=== PATIENT | male | born 1950 | race Two or more races ===

== ENCOUNTER 2016-10-02 00:28 | Inpatient (IN) | payer BC, OTHER ==
--- NOTE | 2016-10-02 01:07 | ER Document Report ---
ED General - General Chief Complaint: Chest Pain Stated Complaint: CHEST PAIN Time seen by provider: 01:05 Notes: Patient is a 65-year-old male that comes emergency department for 2 complaints, chest pain and bloody bowel movements. 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 He denies shortness of breath. Patient also states that tonight he has had repeated episodes (4 in total) where he feels a sudden gurgling in his lower abdomen and then rushes to the bathroom and has almost pure blood bowel movements. Patient is on Plavix and aspirin, took both today, took 324 mg of aspirin. He is also on omeprazole, denies black stools, denies upper abdominal pain or vomiting. Patient has a history of HTN, HLD, CAD with stents 2, most recent in [place] in 2006. Patient sees Dr. Hernández [facility] and [facility]. TRAVEL OUTSIDE OF THE [place] IN LAST 30 DAYS: No - Related Data Allergies/Adverse Reactions: No Known Allergies Allergy (Unverified 10/02/16 00:31) Home Medications: Current Home Medications Amlodipine Besylate [Amlodipine Besylate] 5 mg PO DAILY 10/02/16 [History] Aspirin [Aspirin EC] 325 mg PO DAILY 10/02/16 [History] Clopidogrel Bisulfate [Clopidogrel] 75 mg PO DAILY 10/02/16 [History] Lisinopril [Lisinopril] 40 mg PO BID 10/02/16 [History] Metoprolol Tartrate [Metoprolol Tartrate] 50 mg PO BID 10/02/16 [History] [place]-3S/Dha/Epa/Fish Oil [Fish Oil 1,200 mg Softgel] 1 each PO BID 10/02/16 [ History] Omeprazole [Omeprazole] 20 mg PO DAILY 10/02/16 [History] Pravastatin Sodium [Pravastatin Sodium] 40 mg PO DAILY 10/02/16 [History] Past Medical History - General Information source: Patient - Social History Smoking Status: Current Every Day Smoker Frequency of alcohol use: Social Drug Abuse: None Lives with: Family Family History: Reviewed & Not Pertinent Patient has suicidal ideation: No Patient has homicidal ideation: No - Past Medical History Cardiac Medical History: Reports: Hx Coronary Artery Disease, Hx Hypercholesterolemia, Hx Hypertension Renal/ Medical History: Denies: Hx Peritoneal Dialysis Past Surgical History: Reports: Hx Cardiac Catheterization - Immunizations Immunizations up to date: Yes Hx Diphtheria, Pertussis, Tetanus Vaccination: Yes Review of Systems - Review of Systems Constitutional: No symptoms reported EENT: No symptoms reported Cardiovascular: See HPI Respiratory: No symptoms reported Gastrointestinal: See HPI Genitourinary: No symptoms reported Male Genitourinary: No symptoms reported Musculoskeletal: No symptoms reported Skin: No symptoms reported Hematologic/Lymphatic: No symptoms reported Neurological/Psychological: No symptoms reported Physical Exam - Vital signs Vitals: Temp Pulse Resp BP Pulse Ox 98.3 F 68 18 171/92 H 96 10/02/16 00:35 10/02/16 00:35 10/02/16 00:35 10/02/16 00:35 10/02/16 00:35 Interpretation: Normal - General General appearance: Anxious In distress: None - Patient slightly nervous and slightly pale, otherwise unremarkable - HEENT Head: Normocephalic, Atraumatic Eyes: Normal Pupils: PERRL - Respiratory Respiratory status: No respiratory distress Chest status: Tender - There is specific point tenderness over the left lateral rib at its approximately ribs 4 and 5 near the midaxillary line Breath sounds: Normal Chest palpation: Normal - Cardiovascular Rhythm: Regular. No: Tachycardia Heart sounds: Normal auscultation, S1 appreciated, S2 appreciated Murmur: No - Abdominal Inspection: Normal Distension: No distension Bowel sounds: Normal Tenderness: Nontender. No: Tender, Rebound Organomegaly: No organomegaly - Rectal Stool: See lab result, Other - no grossly bloody stools Hemorrhoids: None. No: Internal, External Prostate: Enlarged - slightly enlarged, non-tender, not boggy - Back Back: Normal, Nontender - Extremities General upper extremity: Normal inspection, Nontender, Normal color, Normal ROM , Normal temperature General lower extremity: Normal inspection, Nontender, Normal color, Normal ROM , Normal temperature, Normal weight bearing. 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 No gross bloody stools noted on examination. Patient has already taken 324 mg of aspirin and he is on Plavix, aspirin withheld at his arrival for this reason. In regards to chest pain, patient has specific, mild, constant, easily reproducible rib tenderness on the left side near the midaxillary line, no other chest pain or symptoms reported in regards to this. EKG shows sinus rhythm, inverted T waves inferiorly, PVCs. Chest x-ray is unremarkable grossly, radiology read pending. Initial cardiac enzyme is negative. Will trend. Rectal examination is unremarkable, no gross bleeding, no internal or external hemorrhoids, hemoglobin 13.3, coagulation markers unremarkable. Laboratory initially resulted with negative stool, patient obviously has bleeding in his bowel movements, another sample was sent and is positive. 10/02/16 02:20 Spoke with surgery operational trainer, Dr. Long, recommends consultation with hospitalist for potential admission of lower GI bleed. Spoke with hospitalist, hospice recommends transfer because of lack of GI coverage. Discussed with patient, patient requests to be transferred to [facility]. 10/02/16 20:35 Spoke with [facility], they state they are "running a code" and will call back. 10/02/16 20:35 Spoke with [facility] again, they state that they will not be able to take the patient because they do not have any beds, they are willing to wait list. 10/02/16 Spoke with Ashish (Dwayne), and they state that they are full and do not have availability for the patient, patient would have to be wait listed Spoke with [facility], pending call back from hospitalist Spoke with Dr. Rooney, patient will be accepted to [facility]. He recommends that because patient takes aspirin that patient also get Protonix bolus. 10/02/16 03:35 Spoke with transfer center, they will not have a bed until the afternoon of today. Patient was complaining of dizziness, is still not hypotensive or tachycardic but is more pale. Briefly placed in Trendelenburg until patient felt better. After this patient denied any symptoms. Patient has now had 8 bloody bowel movements since his arrival, I have ordered blood, patient given a bolus of IV fluids, patient was evaluated at bedside by Dr. Cochran. Spoke again with Dr. Singh and with Dr. Long, patient will be admitted to the hospital, patient admitted to the ICU. 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 Shaw. - Vital Signs Vital signs: Temp Pulse Resp BP Pulse Ox 98.1 F 54 L 15 97/70 L 95 10/02/16 04:51 10/02/16 04:51 10/02/16 04:51 10/02/16 04:51 10/02/16 04:51 - Laboratory Result Diagrams: 10/02/16 03:16 10/02/16 01:00 Laboratory results interpreted by me: 10/02/16 10/02/16 10/02/16 01:00 01:00 03:16 RBC 4.34 L 4.15 L Hgb 13.3 L 12.6 L Hct 37.3 L Crossmatch See Detail Critical Care Note - Critical Care Note Total time excluding time spent on procedures (mins): 40 - lower GI bleed Comments: Please allow 40 minutes of critical care time for evaluation and treatment of lower GI bleed with IV fluids, blood transfusion, multiple re-evaluations, consultation with surgeon, internal medicine, and tertiary care centers. Discharge - Discharge Clinical Impression: Lower GI bleed Condition: Serious Disposition: ADMITTED INPATIENT Admitting Provider: Hospitalist - Dr. Singh Unit Admitted: ICU
[2016-10-02 01:26] LABS: ABSOLUTE EOSINOPHILS # (AUTO) 0.1 10^3/uL (0.0-0.6); ABSOLUTE LYMPHOCYTES (AUTO) 1.6 10^3/uL (0.5-4.7); ABSOLUTE MONOCYTES (AUTO) 0.6 10^3/uL (0.1-1.4); ABSOLUTE NEUT (AUTO) 5.4 10^3/uL (1.7-8.2); BASOPHILS % (AUTO) 0.4 % (0-2); EOSINOPHILS % (AUTO) 0.9 % (0-6); HEMATOCRIT 39.4 % (37.9-51.0); HEMOGLOBIN 13.3 g/dL (13.5-17.0); HGB HCT DIFFERENCE 0.5; LYMPHOCYTES % (AUTO) 21.1 % (13-45); MEAN CORPUSCULAR HEMOGLOBIN 30.6 pg (27.0-33.4); MEAN CORPUSCULAR HGB CONC 33.7 g/dL (32.0-36.0); MEAN CORPUSCULAR VOLUME 91 fl (80-97); MONOCYTES % (AUTO) 8.3 % (3-13); RED BLOOD COUNT 4.34 10^6/uL (4.35-5.55); SEGMENTED NEUTROPHILS % (AUTO) 69.3 % (42-78); WHITE BLOOD COUNT 7.8 10^3/uL (4.0-10.5)
[2016-10-02 01:36] LABS: PARTIAL THROMBOPLASTIN TIME 29.2 SEC (23.5-35.8); PROTHROMBIN TIME 12.8 SEC (11.4-15.4)
[2016-10-02 01:55] LABS: ALANINE AMINOTRANSFERASE 22 U/L (21-72); ALBUMIN 3.6 g/dL (3.5-5.0); ALKALINE PHOSPHATASE 59 U/L (38-126); ANION GAP 12 (5-19); ASPARTATE AMINO TRANSFERASE 19 U/L (17-59); BILIRUBIN,TOTAL 0.5 mg/dL (0.2-1.3); BLOOD UREA NITROGEN 20 mg/dL (7-20); CALCIUM 9.1 mg/dL (8.4-10.2); CARBON DIOXIDE 27 mmol/L (22-30); CHLORIDE 106 mmol/L (98-107); CREATINE KINASE 77 U/L (55-170); CREATININE RESULT 0.98 mg/dL (0.52-1.25); GLUCOSE 100 mg/dL (75-110); POTASSIUM 3.7 mmol/L (3.6-5.0); SODIUM 144.7 mmol/L (137-145); TOTAL PROTEIN 6.5 g/dL (6.3-8.2)
[2016-10-02 02:05] LABS: CREATINE KINASE MB 1.44 ng/mL (<4.55)
[2016-10-02 02:10] LABS: TROPONIN I < 0.012 ng/mL
[2016-10-02] MEDS ORDERED: NORMAL SALINE 250 ML IV PRN ×3 (03:13→18:37)
[2016-10-02 03:24] LABS: HEMATOCRIT 37.3 % (37.9-51.0); HEMOGLOBIN 12.6 g/dL (13.5-17.0); HGB HCT DIFFERENCE 0.5; MEAN CORPUSCULAR HEMOGLOBIN 30.4 pg (27.0-33.4); MEAN CORPUSCULAR HGB CONC 33.8 g/dL (32.0-36.0); MEAN CORPUSCULAR VOLUME 90 fl (80-97); RED BLOOD COUNT 4.15 10^6/uL (4.35-5.55); RED CELL DISTRIBUTION WIDTH 13.6 % (11.5-14.0); WHITE BLOOD COUNT 8.5 10^3/uL (4.0-10.5)
[2016-10-02] MEDS ORDERED: PANTOPRAZOLE SODIUM 40 MG VIAL IV ONE (03:33)
[2016-10-02] MEDS ORDERED: ONDANSETRON HCL INJ/PF 4 MG/2 ML SDV IV PRN (03:55)
[2016-10-02] MEDS ORDERED: IPRATROPIUM/ALBUTEROL 0.5-2.5 MG/3 ML AMPUL NEB PRN (03:55)
[2016-10-02] MEDS ORDERED: NORMAL SALINE 1000 ML 1,000 ML IV SCH (04:00)
--- NOTE | 2016-10-02 04:56 | PDOC H&P ---
History of Present Illness Patient complains of: Bright red blood per rectum History of Present Illness: JANNA MORRISON is a 65 year old male with a past medical history of coronary artery disease status post stent placement 2 in 2006, hypertension and tobacco dependence. Who had been in his usual state of health until approximately 1 hour prior to presentation having lower abdominal cramping followed by passage of hard stool with approximately 200ml of bright red blood. This occurred at least 4 times and brought to the emergency room for evaluation again occurring 3 times mixed with stool. Patient denies previous colonoscopy, any recent change in medications or prior event. He takes Plavix and full dose aspirin every morning. Past Medical History Cardiac Medical History: Reports: Coronary Artery Disease, Hypertension Pulmonary Medical History: Reports: Bronchitis, Chronic Obstructive Pulmonary Disease (COPD) EENT Medical History: Reports: None Neurological Medical History: Reports: None Endocrine Medical History: Reports: None Renal/ Medical History: Reports: None Malignancy Medical History: Reports: None GI Medical History: Reports: None Musculoskeltal Medical History: Reports: Arthritis Skin Medical History: Reports: None Hematology: Reports: None Infectious Medical History: Reports: None Social History Information Source: Patient, Relative Lives with: Family Smoking Status: Current Every Day Smoker Cigarettes Packs Per Day: 1 Frequency of Alcohol Use: Social Hx Recreational Drug Use: No Drugs: None - Advance Directive Resuscitation Status: Full Code Family History Family History: Malignancy - Mother with throat cancer Parental Family History Reviewed: Yes Children Family History Reviewed: Yes Sibling(s) Family History Reviewed.: Yes Medication/Allergy Allergies/Adverse Reactions: No Known Allergies Allergy (Unverified 10/02/16 00:31) Review of Systems Constitutional: ABSENT: chills, fever(s), headache(s), weight gain, weight loss Eyes: ABSENT: visual disturbances Ears: ABSENT: hearing changes Cardiovascular: ABSENT: chest pain, dyspnea on exertion, edema, orthropnea, palpitations Respiratory: ABSENT: cough, hemoptysis Gastrointestinal: ABSENT: abdominal pain, constipation, diarrhea, hematemesis, hematochezia, nausea, vomiting Genitourinary: ABSENT: dysuria, hematuria Musculoskeletal: ABSENT: joint swelling Integumentary: ABSENT: rash, wounds Neurological: ABSENT: abnormal gait, abnormal speech, confusion, dizziness, focal weakness, syncope Psychiatric: ABSENT: anxiety, depression, homidical ideation, suicidal ideation Endocrine: ABSENT: cold intolerance, heat intolerance, polydipsia, polyuria Hematologic/Lymphatic: ABSENT: easy bleeding, easy bruising Physical Exam Vital Signs: Temp Pulse Resp BP Pulse Ox 98.3 F 68 19 145/98 H 98 10/02/16 00:35 10/02/16 00:35 10/02/16 03:15 10/02/16 03:15 10/02/16 03:15 Intake & Output 09/30/16 10/01/16 10/02/16 11:59 11:59 11:59 Weight 98.9 kg General appearance: PRESENT: cooperative, mild distress Head exam: PRESENT: atraumatic, normocephalic Eye exam: PRESENT: conjunctiva pink, EOMI, PERRLA. ABSENT: scleral icterus Ear exam: PRESENT: normal external ear exam Mouth exam: PRESENT: moist, tongue midline Neck exam: ABSENT: carotid bruit, JVD, lymphadenopathy, thyromegaly Respiratory exam: PRESENT: clear to auscultation tamir. ABSENT: rales, rhonchi, wheezes Cardiovascular exam: PRESENT: RRR. ABSENT: diastolic murmur, rubs, systolic murmur Pulses: PRESENT: normal dorsalis pedis pul Vascular exam: PRESENT: normal capillary refill GI/Abdominal exam: PRESENT: hyperactive bowel sounds, soft. ABSENT: distended, firm, guarding, mass, rebound, rigid, tenderness Rectal exam: PRESENT: bloody stool, normal rectal tone. ABSENT: fecal impaction Extremities exam: PRESENT: full ROM. ABSENT: calf tenderness, clubbing, pedal edema Neurological exam: PRESENT: alert, awake, oriented to person, oriented to place , oriented to time, oriented to situation, CN II-XII grossly intact. ABSENT: motor sensory deficit Psychiatric exam: PRESENT: anxious, appropriate affect, normal mood. ABSENT: homicidal ideation, suicidal ideation Skin exam: PRESENT: dry, intact, warm. ABSENT: cyanosis, rash Results Laboratory Results: 10/02/16 03:16 10/02/16 01:00 10/02/16 10/02/16 10/02/16 01:00 01:00 01:00 WBC 7.8 RBC 4.34 L Hgb 13.3 L Hct 39.4 MCV 91 MCH 30.6 MCHC 33.7 RDW 14.0 Plt Count 271 Seg Neutrophils % 69.3 Lymphocytes % 21.1 Monocytes % 8.3 Eosinophils % 0.9 Basophils % 0.4 Absolute Neutrophils 5.4 Absolute Lymphocytes 1.6 Absolute Monocytes 0.6 Absolute Eosinophils 0.1 Absolute Basophils 0.0 Sodium 144.7 Potassium 3.7 Chloride 106 Carbon Dioxide 27 Anion Gap 12 BUN 20 Creatinine 0.98 Est GFR ( Amer) > 60 Est GFR (Non-Af Amer) > 60 Glucose 100 Calcium 9.1 Total Bilirubin 0.5 AST 19 ALT 22 Alkaline Phosphatase 59 Total Protein 6.5 Albumin 3.6 Stool Occult Blood NEGATIVE Blood Type Antibody Screen 10/02/16 10/02/16 10/02/16 01:00 01:45 03:16 WBC 8.5 RBC 4.15 L Hgb 12.6 L Hct 37.3 L MCV 90 MCH 30.4 MCHC 33.8 RDW 13.6 Plt Count 270 Seg Neutrophils % Lymphocytes % Monocytes % Eosinophils % Basophils % Absolute Neutrophils Absolute Lymphocytes Absolute Monocytes Absolute Eosinophils Absolute Basophils Sodium Potassium Chloride Carbon Dioxide Anion Gap BUN Creatinine Est GFR ( Amer) Est GFR (Non-Af Amer) Glucose Calcium Total Bilirubin AST ALT Alkaline Phosphatase Total Protein Albumin Stool Occult Blood POSITIVE Blood Type O POSITIVE Antibody Screen NEGATIVE 10/02/16 10/02/16 01:00 01:00 Creatine Kinase 77 CK-MB (CK-2) 1.44 Troponin I < 0.012 Assessment & Plan - Diagnosis (1) Lower GI bleed Is this a current diagnosis for this admission?: YesPlan: Likely AVM versus bleeding diverticulum he is Typed and screen 2 units of pack red blood cells ordered repeat CBC every 6 hours, surgery consulted (2) Coronary artery disease Is this a current diagnosis for this admission?: YesPlan: Aspirin and Plavix held given active large lower GI bleed, obtain serial cardiac enzymes. (3) Anemia Is this a current diagnosis for this admission?: YesPlan: Secondary to large active lower GI bleed transfuse when necessary maintain hemoglobin greater than 10 given coronary disease - Time Time Spent: 50 to 70 Minutes
[2016-10-02 06:28] LABS: CREATINE KINASE MB 1.05 ng/mL (<4.55); TROPONIN I 0.012 ng/mL
--- NOTE | 2016-10-02 09:22 | EKG REPORT ---
SEVERITY:- ABNORMAL ECG - SINUS RHYTHM VENTRICULAR PREMATURE COMPLEX PROBABLE LEFT ATRIAL ABNORMALITY NONSPECIFIC INTRAVENTRICULAR CONDUCTION DELAY LEFT VENTRICULAR HYPERTROPHY : Confirmed by: Ron Mascorro 02-Oct-2016 09:21:02
[2016-10-02 09:24] LABS: ABSOLUTE MONOCYTES (AUTO) 0.4 10^3/uL (0.1-1.4); BASOPHILS % (AUTO) 0.4 % (0-2); EOSINOPHILS % (AUTO) 0.2 % (0-6); HEMATOCRIT 33.6 % (37.9-51.0); HEMOGLOBIN 11.3 g/dL (13.5-17.0); HGB HCT DIFFERENCE 0.3; LYMPHOCYTES % (AUTO) 12.2 % (13-45); MEAN CORPUSCULAR HEMOGLOBIN 30.5 pg (27.0-33.4); MEAN CORPUSCULAR HGB CONC 33.7 g/dL (32.0-36.0); MEAN CORPUSCULAR VOLUME 91 fl (80-97); MONOCYTES % (AUTO) 4.3 % (3-13); RED BLOOD COUNT 3.71 10^6/uL (4.35-5.55); RED CELL DISTRIBUTION WIDTH 13.8 % (11.5-14.0); SEGMENTED NEUTROPHILS % (AUTO) 82.9 % (42-78); WHITE BLOOD COUNT 8.4 10^3/uL (4.0-10.5)
[2016-10-02] MEDS ORDERED: METOPROLOL TARTRATE 50 MG TABLET PO SCH (10:00)
[2016-10-02] MEDS ORDERED: AMLODIPINE BESYLATE 5 MG TABLET PO SCH (10:00)
[2016-10-02 12:09] LABS: CREATINE KINASE MB 0.82 ng/mL (<4.55)
[2016-10-02 12:13] LABS: TROPONIN I < 0.012 ng/mL
[2016-10-02 14:08] LABS: ABSOLUTE MONOCYTES (AUTO) 0.7 10^3/uL (0.1-1.4); ABSOLUTE NEUT (AUTO) 5.7 10^3/uL (1.7-8.2); BASOPHILS % (AUTO) 0.4 % (0-2); EOSINOPHILS % (AUTO) 0.2 % (0-6); HEMATOCRIT 33.2 % (37.9-51.0); HEMOGLOBIN 11.4 g/dL (13.5-17.0); LYMPHOCYTES % (AUTO) 23.7 % (13-45); MEAN CORPUSCULAR HEMOGLOBIN 30.7 pg (27.0-33.4); MEAN CORPUSCULAR HGB CONC 34.2 g/dL (32.0-36.0); MEAN CORPUSCULAR VOLUME 90 fl (80-97); RED CELL DISTRIBUTION WIDTH 13.7 % (11.5-14.0); SEGMENTED NEUTROPHILS % (AUTO) 67.7 % (42-78); WHITE BLOOD COUNT 8.4 10^3/uL (4.0-10.5)
--- NOTE | 2016-10-02 14:37 | PDOC CONSULTATION ---
History of Present Illness Admission Date/PCP: 10/02/16 03:55 History of Present Illness: Jone Chou is a 65-year-old male with past medical history including coronary artery disease status post myocardial infarction and coronary artery stent placement 2 in 2006. He also has hypertension, hyperlipidemia, tobacco dependence and arthritis. He previously smoked cigarettes, at least 1 pack per day, but currently smokes 20 small cigars a day. He has at least a 50-pack- year history. He is on Plavix and aspirin daily. He last took both of these on 10/01/2016 at noon. He reports ongoing history of problems with his teeth, but more severe tooth pain over the last week. The last 3 days he has taken 800 mg Motrin 3-4 times per day. For the last week, he reports a sensation/hearing sounds of stomach gurgling followed shortly by a normal BM. A 10 PM last evening, he had stomach gurgling , but then had diarrhea with bright and dark red blood. He proceeded to have 11 bowel movements between then and 4:30 AM, all of them bloody. He denies stomach pain but reports left chest pain. With his hand, he indicates pain in the left lower chest/upper most left abdomen. He denies any previous episodes. He has never undergone colonoscopy. He denies personal or family history of Crohn's disease, ulcerative colitis or colorectal cancer. Review of systems: He reports progression of his baseline shortness of breath, recent increase in dizziness/lightheadedness, increased fatigue. Past Medical History Cardiac Medical History: Reports: Coronary Artery Disease, Hyperlipidema, Hypertension EENT Medical History: Reports: Other - Bad teeth, tooth infections. Neurological Medical History: Denies: Ischemic CVA, Seizures Endocrine Medical History: Reports: None Renal/ Medical History: Reports: None Malignancy Medical History: Reports: None Musculoskeltal Medical History: Reports: Arthritis Skin Medical History: Reports: None Psychiatric Medical History: Reports: Tobacco Dependency Hematology: Reports: None Infectious Medical History: Reports: None Past Surgical History Past Surgical History: Reports: Cardiac Catheterization Social History Information Source: Patient, Relative Lives with: Family Smoking Status: Current Every Day Smoker Cigarettes Packs Per Day: 1 Cigars Per Day: 20 - 20 small cigars a day Number of Years Smokin Last Time Smoked: 10/01/16 Frequency of Alcohol Use: Social Hx Recreational Drug Use: No Drugs: None Hx Prescription Drug Abuse: No - Advance Directive Resuscitation Status: Full Code Family History Family History: Malignancy - Mother had throat cancer, Other - Denies any personal or family history of bleeding disorders, blood clots or anesthesia problems. Parental Family History Reviewed: Yes Children Family History Reviewed: Yes Sibling(s) Family History Reviewed.: Yes Medication/Allergy Home Medications: Amlodipine Besylate [Norvasc 5 mg Tablet] 5 mg PO DAILY 10/02/16 Clopidogrel Bisulfate [Plavix 75 mg Tablet] 75 mg PO DAILY 10/02/16 Lisinopril [Prinivil 40 mg Tablet] 40 mg PO Q12 10/02/16 Metoprolol Tartrate [Lopressor 50 mg Tablet] 50 mg PO Q12 10/02/16 Nitroglycerin [Nitrostat] 0.4 mg SL Q5MP PRN 10/02/16 Omeprazole 20 mg PO DAILY 10/02/16 Pravastatin Sodium [Pravachol] 40 mg PO DAILY 10/02/16 Allergies/Adverse Reactions: No Known Allergies Allergy (Unverified 10/02/16 00:31) Review of Systems All systems: reviewed and no additional remarkable complaints except as stated Physical Exam Vital Signs: Temp Pulse Resp BP Pulse Ox 97.5 F 54 L 18 138/83 H 100 10/02/16 13:15 10/02/16 13:15 10/02/16 13:15 10/02/16 13:15 10/02/16 13:15 Intake & Output 10/01/16 10/02/16 10/03/16 06:59 06:59 06:59 Intake Total 0 350 Output Total 0 Balance 0 350 Weight 97.7 kg General appearance: PRESENT: no acute distress, obese Head exam: PRESENT: normocephalic Eye exam: PRESENT: EOMI Mouth exam: PRESENT: tongue midline Teeth exam: PRESENT: poor dentation, other - Infected lower gums Neck exam: ABSENT: JVD, lymphadenopathy, tenderness, thyromegaly Respiratory exam: PRESENT: clear to auscultation tamir Cardiovascular exam: PRESENT: RRR GI/Abdominal exam: PRESENT: hernia - No painful groin bulges, normal bowel sounds, soft. ABSENT: distended, tenderness Rectal exam: PRESENT: bloody stool, normal rectal tone, prostate enlargement. ABSENT: hemorrhoids, laceration, mass Extremities exam: ABSENT: pedal edema, tenderness Neurological exam: PRESENT: alert, oriented to person, oriented to place, oriented to time, oriented to situation Psychiatric exam: PRESENT: appropriate affect, normal mood Skin exam: ABSENT: jaundice, rash Results Laboratory Results: 10/02/16 14:00 10/02/16 10/02/16 09:12 14:00 WBC 8.4 8.4 RBC 3.71 L 3.70 L Hgb 11.3 L 11.4 L Hct 33.6 L 33.2 L MCV 91 90 MCH 30.5 30.7 MCHC 33.7 34.2 RDW 13.8 13.7 Plt Count 212 222 Seg Neutrophils % 82.9 H 67.7 Lymphocytes % 12.2 L 23.7 Monocytes % 4.3 8.0 Eosinophils % 0.2 0.2 Basophils % 0.4 0.4 Absolute Neutrophils 7.0 5.7 Absolute Lymphocytes 1.0 2.0 Absolute Monocytes 0.4 0.7 Absolute Eosinophils 0.0 0.0 Absolute Basophils 0.0 0.0 10/02/16 10/02/16 10/02/16 05:45 05:45 11:30 Creatine Kinase 51 L 34 L CK-MB (CK-2) 1.05 Troponin I 0.012 10/02/16 11:30 Creatine Kinase CK-MB (CK-2) 0.82 Troponin I < 0.012 Impressions: Chest X-Ray 10/02/16 01:03 IMPRESSION: NO ACUTE RADIOGRAPHIC FINDING IN THE CHEST. Status: Image reviewed by me Assessment & Plan - Diagnosis (1) Anemia Is this a current diagnosis for this admission?: Yes (2) Coronary artery disease Is this a current diagnosis for this admission?: Yes (3) Lower GI bleed Is this a current diagnosis for this admission?: YesPlan: Hemodynamically stable. Hospitalists transferring to [facility]. Agree with Protonix , IV fluid resuscitation, hold aspirin, Plavix. We'll begin bowel prep with clear liquids and GoLYTELY. Nothing by mouth at midnight in anticipation of a colonoscopy and possible EGD in the morning.
[2016-10-02 14:42] LABS: CREATINE KINASE MB 0.86 ng/mL (<4.55)
[2016-10-02 14:44] LABS: TROPONIN I < 0.012 ng/mL
[2016-10-02] MEDS ORDERED: PEG 3350/NA SULF,BICARB,CL/KCL 4000 ML PO ONE (15:30)
[2016-10-02] MEDS ORDERED: NORMAL SALINE 1000 ML 1,000 ML IV PRN (17:15)
--- NOTE | 2016-10-02 17:26 | PDOC PROGRESS REPORT ---
Subjective Progress Note for:: 10/02/16 Subjective:: Patient reports that he's had bright red blood per rectum. Patient has received already 1 unit of packed red blood cells. Patient denies chest pain, shortness of breath, abdominal pain, nausea, vomiting, fevers, chills, constipation, headache, new onset weakness. Physical Exam Vital Signs: Temp Pulse Resp BP Pulse Ox 97.5 F 52 L 15 130/80 H 100 10/02/16 06:10 10/02/16 06:10 10/02/16 06:10 10/02/16 06:10 10/02/16 06:10 Intake & Output 10/01/16 10/02/16 10/03/16 06:59 06:59 06:59 Intake Total 0 Balance 0 Weight 97.7 kg Exam: General: Awake alert and oriented x3, no acute respiratory distress HEENT: AT/NC, PERRL, EOMI, oropharynx is moist, pink, no scleral icterus, no conjunctival injection, very poor dentition Neck: No JVD, trachea midline Chest: Clear to auscultation bilaterally, no wheezes rhonchi or rales CV: Regular rate and rhythm, normal S1 and S2, no murmur, rub, or gallop Abdomen: Soft, nontender to palpation, nondistended, active bowel sounds; no rebound, rigidity, or guarding Extremities: No cyanosis, clubbing or edema Neuro: Cranial nerves II through XII are grossly intact without focal deficits; awake alert and oriented x3 Psych: Normal mood and affect Results Laboratory Results: 10/02/16 10/02/16 05:45 05:45 Creatine Kinase 51 L CK-MB (CK-2) 1.05 Troponin I 0.012 Impressions: Chest X-Ray 10/02/16 01:03 IMPRESSION: NO ACUTE RADIOGRAPHIC FINDING IN THE CHEST. Assessment & Plan - Diagnosis (1) Acute blood loss anemia Is this a current diagnosis for this admission?: YesPlan: Patient has been given one unit of packed red blood cells. Will repeat a CBC in one hour after the transfusion and if stable we'll not give the second unit. We will hold this. Patient is not having ongoing losses, but we'll continue to follow CBC every 6. (2) GI hemorrhage Qualifiers: GI bleed type/associated pathology: unspecified gastrointestinal hemorrhage type Qualified Code(s): K92.2 - Gastrointestinal hemorrhage, unspecified Is this a current diagnosis for this admission?: YesPlan: Patient with bright red blood per rectum. Have considered at this time diverticular bleed, mass, upper GI bleed, and hemorrhoidal bleed. This is all confounded by patient's use of aspirin and Plavix. Aspirin and Plavix are on hold. Have consulted surgery for endoscopy. Continue to monitor on telemetry and transfuse as necessary. (4) Coronary artery disease Qualifiers: Coronary Disease-Associated Artery/Lesion type: [place] artery [place] vs. transplanted heart: [place] heart Associated angina: without angina Qualified Code(s): I25.10 - Atherosclerotic heart disease of [place] coronary artery without angina pectoris Is this a current diagnosis for this admission?: YesPlan: Patient is currently chest pain-free. He was previously symptomatic and has been transfused. Will continue to monitor on telemetry. And monitor serial cardiac enzymes. Hold aspirin and Plavix. At this time, patient is marginally hypotensive and is actually bradycardic and we will hold his metoprolol for heart rate less than 60 and lisinopril for systolic less than 110. Will resume these as tolerated. (5) Obesity Qualifiers: Obesity type: due to excess calories Obesity severity: non-morbid Qualified Code(s): E66.09 - Other obesity due to excess calories Is this a current diagnosis for this admission?: Yes - Time Time Spent with patient: 35 or more minutes Medications reviewed and adjusted accordingly: Yes
[2016-10-02] MEDS: NORMAL SALINE 100 ML with PANTOPRAZOLE SODIUM 80 MG IV PRN ×2 (18:09)
[2016-10-02 18:15] LABS: ABSOLUTE LYMPHOCYTES (AUTO) 1.3 10^3/uL (0.5-4.7); ABSOLUTE MONOCYTES (AUTO) 0.4 10^3/uL (0.1-1.4); ABSOLUTE NEUT (AUTO) 3.4 10^3/uL (1.7-8.2); BASOPHILS % (AUTO) 0.3 % (0-2); EOSINOPHILS % (AUTO) 0.6 % (0-6); HEMATOCRIT 19.1 % (37.9-51.0); HGB HCT DIFFERENCE 0.4; LYMPHOCYTES % (AUTO) 25.3 % (13-45); MEAN CORPUSCULAR HEMOGLOBIN 30.9 pg (27.0-33.4); MEAN CORPUSCULAR HGB CONC 33.9 g/dL (32.0-36.0); MEAN CORPUSCULAR VOLUME 91 fl (80-97); MONOCYTES % (AUTO) 7.8 % (3-13); RED BLOOD COUNT 2.09 10^6/uL (4.35-5.55); WHITE BLOOD COUNT 5.1 10^3/uL (4.0-10.5)
[2016-10-02 18:35] LABS: HEMOGLOBIN 6.5 g/dL (13.5-17.0)
[2016-10-02 18:36] LABS: CREATINE KINASE MB 0.56 ng/mL (<4.55)
--- NOTE | 2016-10-02 18:39 | Progress Note ---
Provider Note Provider Note: Called that patient's hemoglobin is 6.5 down from 11.4 at approximately 1400. Ordered immediate release of health unit of red blood cells and repeat stat CBC. Additional units ordered for possible need for massive transfusion. Will also order PT INR and PTT.
[2016-10-02 18:41] LABS: TROPONIN I < 0.012 ng/mL
[2016-10-02 20:14] LABS: PARTIAL THROMBOPLASTIN TIME 23.9 SEC (23.5-35.8)
[2016-10-02 21:03] LABS: ABSOLUTE LYMPHOCYTES (AUTO) 2.2 10^3/uL (0.5-4.7); ABSOLUTE MONOCYTES (AUTO) 0.8 10^3/uL (0.1-1.4); BASOPHILS % (AUTO) 0.3 % (0-2); EOSINOPHILS % (AUTO) 0.5 % (0-6); HEMATOCRIT 29.4 % (37.9-51.0); HGB HCT DIFFERENCE 1.2; LYMPHOCYTES % (AUTO) 21.8 % (13-45); MEAN CORPUSCULAR HGB CONC 34.6 g/dL (32.0-36.0); MEAN CORPUSCULAR VOLUME 90 fl (80-97); MONOCYTES % (AUTO) 8.1 % (3-13); RED BLOOD COUNT 3.28 10^6/uL (4.35-5.55); RED CELL DISTRIBUTION WIDTH 13.9 % (11.5-14.0); SEGMENTED NEUTROPHILS % (AUTO) 69.3 % (42-78); WHITE BLOOD COUNT 10.1 10^3/uL (4.0-10.5)
[2016-10-02 21:26] LABS: HEMOGLOBIN 10.2 g/dL (13.5-17.0)
[2016-10-02] MEDS: AMLODIPINE BESYLATE 5 MG TABLET PO SCH (22:04)
[2016-10-02] MEDS: METOPROLOL TARTRATE 50 MG TABLET PO SCH (22:05)
[2016-10-03] MEDS: NORMAL SALINE 100 ML with PANTOPRAZOLE SODIUM 80 MG IV PRN ×4 (02:27→23:09)
[2016-10-03 07:16] LABS: ABSOLUTE EOSINOPHILS # (AUTO) 0.1 10^3/uL (0.0-0.6); ABSOLUTE LYMPHOCYTES (AUTO) 1.3 10^3/uL (0.5-4.7); ABSOLUTE MONOCYTES (AUTO) 0.5 10^3/uL (0.1-1.4); ABSOLUTE NEUT (AUTO) 4.7 10^3/uL (1.7-8.2); BASOPHILS % (AUTO) 0.3 % (0-2); HEMATOCRIT 31.6 % (37.9-51.0); HEMOGLOBIN 10.8 g/dL (13.5-17.0); HGB HCT DIFFERENCE 0.8; LYMPHOCYTES % (AUTO) 20.4 % (13-45); MEAN CORPUSCULAR HEMOGLOBIN 30.2 pg (27.0-33.4); MEAN CORPUSCULAR VOLUME 89 fl (80-97); MONOCYTES % (AUTO) 7.6 % (3-13); RED BLOOD COUNT 3.56 10^6/uL (4.35-5.55); RED CELL DISTRIBUTION WIDTH 14.1 % (11.5-14.0); SEGMENTED NEUTROPHILS % (AUTO) 70.7 % (42-78); WHITE BLOOD COUNT 6.6 10^3/uL (4.0-10.5)
--- NOTE | 2016-10-03 11:22 | PDOC PROGRESS REPORT ---
Subjective Progress Note for:: 10/03/16 Subjective:: Feels well. Still passing dark blood per rectum. Tolerated prep well. Physical Exam Vital Signs: Temp Pulse Resp BP Pulse Ox 98.8 F 68 16 128/72 H 94 10/03/16 07:27 10/03/16 10:43 10/03/16 10:43 10/03/16 07:27 10/03/16 07:27 Intake & Output 10/02/16 10/03/16 10/04/16 06:59 06:59 06:59 Intake Total 0 3766 Output Total 200 Balance 0 3566 Weight 97.7 kg 103.6 kg General appearance: PRESENT: no acute distress Respiratory exam: PRESENT: clear to auscultation tamir Cardiovascular exam: PRESENT: RRR GI/Abdominal exam: PRESENT: other - Soft nondistended nontender to palpation Results Laboratory Results: 10/03/16 06:46 10/02/16 10/02/16 10/02/16 14:00 18:03 19:30 WBC 8.4 5.1 Cancelled RBC 3.70 L 2.09 L Cancelled Hgb 11.4 L 6.5 L D Cancelled Hct 33.2 L 19.1 L Cancelled MCV 90 91 Cancelled MCH 30.7 30.9 Cancelled MCHC 34.2 33.9 Cancelled RDW 13.7 14.0 Cancelled Plt Count 222 135 L Cancelled Seg Neutrophils % 67.7 66.0 Cancelled Lymphocytes % 23.7 25.3 Cancelled Monocytes % 8.0 7.8 Cancelled Eosinophils % 0.2 0.6 Cancelled Basophils % 0.4 0.3 Cancelled Absolute Neutrophils 5.7 3.4 Cancelled Absolute Lymphocytes 2.0 1.3 Cancelled Absolute Monocytes 0.7 0.4 Cancelled Absolute Eosinophils 0.0 0.0 Cancelled Absolute Basophils 0.0 0.0 Cancelled 10/02/16 10/03/16 20:50 06:46 WBC 10.1 6.6 RBC 3.28 L 3.56 L Hgb 10.2 L D 10.8 L Hct 29.4 L 31.6 L MCV 90 89 MCH 31.0 30.2 MCHC 34.6 34.0 RDW 13.9 14.1 H Plt Count 203 164 Seg Neutrophils % 69.3 70.7 Lymphocytes % 21.8 20.4 Monocytes % 8.1 7.6 Eosinophils % 0.5 1.0 Basophils % 0.3 0.3 Absolute Neutrophils 7.0 4.7 Absolute Lymphocytes 2.2 1.3 Absolute Monocytes 0.8 0.5 Absolute Eosinophils 0.0 0.1 Absolute Basophils 0.0 0.0 10/02/16 10/02/16 10/02/16 05:45 05:45 11:30 Creatine Kinase 51 L 34 L CK-MB (CK-2) 1.05 Troponin I 0.012 10/02/16 10/02/16 10/02/16 11:30 14:00 14:00 Creatine Kinase 49 L CK-MB (CK-2) 0.82 0.86 Troponin I < 0.012 < 0.012 10/02/16 10/02/16 18:03 18:03 Creatine Kinase 32 L CK-MB (CK-2) 0.56 Troponin I < 0.012 Impressions: Chest X-Ray 10/02/16 01:03 IMPRESSION: NO ACUTE RADIOGRAPHIC FINDING IN THE CHEST. Assessment & Plan - Diagnosis (1) GI hemorrhage Qualifiers: GI bleed type/associated pathology: unspecified gastrointestinal hemorrhage type Qualified Code(s): K92.2 - Gastrointestinal hemorrhage, unspecified Is this a current diagnosis for this admission?: YesPlan: Unclear clear etiology. Plan upper and lower endoscopy. I have discussed with the patient the risk and benefits of the procedure including risk of intestinal injury and bleeding. Patient understands and agrees to proceed.
--- NOTE | 2016-10-03 11:24 | EKG REPORT ---
SEVERITY:- ABNORMAL ECG - SINUS RHYTHM NONSPECIFIC INTRAVENTRICULAR CONDUCTION DELAY LEFT VENTRICULAR HYPERTROPHY PROBABLE INFERIOR INFARCT, AGE INDETERMINATE : Confirmed by: Ron Mascorro 03-Oct-2016 11:22:38
[2016-10-03] MEDS: METOPROLOL TARTRATE 50 MG TABLET PO SCH ×2 (11:48→21:29)
[2016-10-03] MEDS ORDERED: ONDANSETRON HCL INJ/PF 4 MG/2 ML SDV ONE (13:15)
[2016-10-03] MEDS ORDERED: NALOXONE HCL INJ/PF 0.4 MG/1 ML SDV ONE (13:15)
[2016-10-03] MEDS ORDERED: FLUMAZENIL INJ 0.5 MG/5 ML VIAL IV ONE (13:15)
[2016-10-03] MEDS ORDERED: PROMETHAZINE HCL INJ 25 MG/1 ML VIAL ONE (13:15)
[2016-10-03] MEDS ORDERED: EPINEPHRINE INJ 1 MG/10 ML DISP.SYRIN ONE (13:16)
[2016-10-03] MEDS ORDERED: GLUCAGON,HUMAN RECOMB 1 MG INJ ONE (13:16)
[2016-10-03 13:19] LABS: ABSOLUTE EOSINOPHILS # (AUTO) 0.1 10^3/uL (0.0-0.6); ABSOLUTE LYMPHOCYTES (AUTO) 1.3 10^3/uL (0.5-4.7); ABSOLUTE MONOCYTES (AUTO) 0.5 10^3/uL (0.1-1.4); ABSOLUTE NEUT (AUTO) 4.6 10^3/uL (1.7-8.2); BASOPHILS % (AUTO) 0.5 % (0-2); HEMATOCRIT 31.1 % (37.9-51.0); HEMOGLOBIN 10.6 g/dL (13.5-17.0); HGB HCT DIFFERENCE 0.7; LYMPHOCYTES % (AUTO) 20.4 % (13-45); MEAN CORPUSCULAR HEMOGLOBIN 30.3 pg (27.0-33.4); MEAN CORPUSCULAR HGB CONC 34.1 g/dL (32.0-36.0); MEAN CORPUSCULAR VOLUME 89 fl (80-97); MONOCYTES % (AUTO) 7.7 % (3-13); RED BLOOD COUNT 3.49 10^6/uL (4.35-5.55); RED CELL DISTRIBUTION WIDTH 14.5 % (11.5-14.0); SEGMENTED NEUTROPHILS % (AUTO) 70.4 % (42-78); WHITE BLOOD COUNT 6.5 10^3/uL (4.0-10.5)
[2016-10-03] MEDS ORDERED: MIDAZOLAM 2 MG/2 ML INJ ONE (13:43)
[2016-10-03] MEDS: MIDAZOLAM 2 MG/2 ML INJ ONE ×3 (13:54→14:03)
[2016-10-03] MEDS: FENTANYL CITRATE INJ/PF 100 MCG/2 ML AMPUL ONE ×3 (13:56→14:27)
--- NOTE | 2016-10-03 15:01 | Operative Report ---
Operative Report DATE OF SURGERY: 10/03/16 PREOPERATIVE DIAGNOSIS: Gastrointestinal bleed POSTOPERATIVE DIAGNOSIS: Gastrointestinal bleed OPERATION: Esophagogastroduodenoscopy. Colonoscopy. SURGEON: KRISTI HODGE ANESTHESIA: Moderate Sedation TISSUE REMOVED OR ALTERED: None COMPLICATIONS: None ESTIMATED BLOOD LOSS: none INTRAOPERATIVE FINDINGS: Normal-appearing esophagus stomach and first and second portion the duodenum. Scattered diverticuli of the colon. dark bloody stool throughout the colon. No source of bleed identified. PROCEDURE: Informed consent was obtained. Patient was brought to the endoscopy suite and placed on the endoscopy suite table in the supine position and then his head elevated. IV sedation with Versed and fentanyl was administered and endoscope was passed via the patient's mouth into the junction between the first and second portion the duodenum. I could not pass the scope fully into the second portion of the duodenum. However no blood was noted and no abnormalities were noted in the duodenum that I was able to see. The stomach had the thickened gastric rugae a but otherwise it appeared normal with no ulcerations and no masses. Retroflexed view demonstrated no gastric cardia lesions. Esophagus appeared normal. Patient was repositioned. Digital rectal exam revealed no palpable perianal masses. Endoscope was passed via the patient's anus it was fed to the cecum. Patient's colon was redundant and there was the very dark the liquid stool throughout the colon making the procedure somewhat difficult. After some technical measures the scope was able to be passed into the cecum. Copious amount of irrigation aspiration was used during the case. There was dark bloody fluid throughout the entire colon. No fresh blood clots however. The cecum appeared normal. I could not pass the scope into the ileum. There was a isolated the diverticuli of the right colon but no blood emanating from it. There were couple of small diverticula in the transverse colon otherwise the transverse colon appeared normal. The descending colon had the few diverticuli and there were more diverticuli in the sigmoid colon but again no masses and no other abnormalities seen. The rectum appeared normal. No source of the his bleed was identified. Patient tolerated procedure well with no apparent complications and was taken to the recovery area in stable condition. If the patient has evidence of continued bleed, will obtain a tagged RBC scan. If he stops bleeding, will obtain a small bowel study.
[2016-10-03 18:45] LABS: ABSOLUTE MONOCYTES (AUTO) 0.5 10^3/uL (0.1-1.4); ABSOLUTE NEUT (AUTO) 6.6 10^3/uL (1.7-8.2); BASOPHILS % (AUTO) 0.3 % (0-2); EOSINOPHILS % (AUTO) 0.5 % (0-6); HEMATOCRIT 32.4 % (37.9-51.0); HEMOGLOBIN 10.9 g/dL (13.5-17.0); HGB HCT DIFFERENCE 0.3; LYMPHOCYTES % (AUTO) 12.5 % (13-45); MEAN CORPUSCULAR HGB CONC 33.5 g/dL (32.0-36.0); MEAN CORPUSCULAR VOLUME 90 fl (80-97); MONOCYTES % (AUTO) 5.6 % (3-13); RED BLOOD COUNT 3.62 10^6/uL (4.35-5.55); RED CELL DISTRIBUTION WIDTH 14.3 % (11.5-14.0); SEGMENTED NEUTROPHILS % (AUTO) 81.1 % (42-78); WHITE BLOOD COUNT 8.1 10^3/uL (4.0-10.5)
--- NOTE | 2016-10-03 18:59 | PDOC PROGRESS REPORT ---
Subjective Progress Note for:: 10/03/16 Subjective:: Patient underwent lower endoscopy today. Patient reports he's had some dark stool since but no bright red to maroon colored. Patient denies chest pain, shortness of breath, abdominal pain, nausea, vomiting, fevers, chills, constipation, headache. Physical Exam Vital Signs: Temp Pulse Resp BP Pulse Ox 98.7 F 67 18 137/85 H 96 10/03/16 04:40 10/03/16 04:40 10/03/16 04:40 10/03/16 04:40 10/03/16 04:40 Intake & Output 10/02/16 10/03/16 10/04/16 06:59 06:59 06:59 Intake Total 0 3766 Output Total 200 Balance 0 3566 Weight 97.7 kg 103.6 kg Exam: General: Awake alert and oriented x3, no acute respiratory distress HEENT: AT/NC, PERRL, EOMI, oropharynx is moist, pink, no scleral icterus, no conjunctival injection, very poor dentition Neck: No JVD, trachea midline Chest: Clear to auscultation bilaterally, no wheezes rhonchi or rales CV: Regular rate and rhythm, normal S1 and S2, no murmur, rub, or gallop Abdomen: Soft, nontender to palpation, nondistended, active bowel sounds; no rebound, rigidity, or guarding Extremities: No cyanosis, clubbing; 1+ edema Neuro: Cranial nerves II through XII are grossly intact without focal deficits; awake alert and oriented x3 Psych: Normal mood and affect Results Laboratory Results: 10/03/16 06:46 10/02/16 10/02/16 10/02/16 09:12 14:00 18:03 WBC 8.4 8.4 5.1 RBC 3.71 L 3.70 L 2.09 L Hgb 11.3 L 11.4 L 6.5 L D Hct 33.6 L 33.2 L 19.1 L MCV 91 90 91 MCH 30.5 30.7 30.9 MCHC 33.7 34.2 33.9 RDW 13.8 13.7 14.0 Plt Count 212 222 135 L Seg Neutrophils % 82.9 H 67.7 66.0 Lymphocytes % 12.2 L 23.7 25.3 Monocytes % 4.3 8.0 7.8 Eosinophils % 0.2 0.2 0.6 Basophils % 0.4 0.4 0.3 Absolute Neutrophils 7.0 5.7 3.4 Absolute Lymphocytes 1.0 2.0 1.3 Absolute Monocytes 0.4 0.7 0.4 Absolute Eosinophils 0.0 0.0 0.0 Absolute Basophils 0.0 0.0 0.0 10/02/16 10/02/16 10/03/16 19:30 20:50 06:46 WBC Cancelled 10.1 6.6 RBC Cancelled 3.28 L 3.56 L Hgb Cancelled 10.2 L D 10.8 L Hct Cancelled 29.4 L 31.6 L MCV Cancelled 90 89 MCH Cancelled 31.0 30.2 MCHC Cancelled 34.6 34.0 RDW Cancelled 13.9 14.1 H Plt Count Cancelled 203 164 Seg Neutrophils % Cancelled 69.3 70.7 Lymphocytes % Cancelled 21.8 20.4 Monocytes % Cancelled 8.1 7.6 Eosinophils % Cancelled 0.5 1.0 Basophils % Cancelled 0.3 0.3 Absolute Neutrophils Cancelled 7.0 4.7 Absolute Lymphocytes Cancelled 2.2 1.3 Absolute Monocytes Cancelled 0.8 0.5 Absolute Eosinophils Cancelled 0.0 0.1 Absolute Basophils Cancelled 0.0 0.0 10/02/16 10/02/16 10/02/16 05:45 05:45 11:30 Creatine Kinase 51 L 34 L CK-MB (CK-2) 1.05 Troponin I 0.012 10/02/16 10/02/16 10/02/16 11:30 14:00 14:00 Creatine Kinase 49 L CK-MB (CK-2) 0.82 0.86 Troponin I < 0.012 < 0.012 10/02/16 10/02/16 18:03 18:03 Creatine Kinase 32 L CK-MB (CK-2) 0.56 Troponin I < 0.012 Impressions: Chest X-Ray 10/02/16 01:03 IMPRESSION: NO ACUTE RADIOGRAPHIC FINDING IN THE CHEST. Assessment & Plan - Diagnosis (1) Acute blood loss anemia Is this a current diagnosis for this admission?: YesPlan: Patient has been given a total of 4 unit packed red blood cells. Will repeat a CBC every 8 hours. If patient continues to have bright red blood per rectum will obtain a tagged red blood cell scan. (2) GI hemorrhage Qualifiers: GI bleed type/associated pathology: diverticulosis Qualified Code(s) : K57.91 - Diverticulosis of intestine, part unspecified, without perforation or abscess with bleeding Is this a current diagnosis for this admission?: YesPlan: At this time, per endoscopy report it appears as though patient had a diverticular bleed. Continue to monitor. (3) Tobacco abuse Is this a current diagnosis for this admission?: YesPlan: Patient has been advised to stop smoking lasting longer than 3 minutes. (4) Coronary artery disease Qualifiers: Coronary Disease-Associated Artery/Lesion type: [place] artery [place] vs. transplanted heart: [place] heart Associated angina: without angina Qualified Code(s): I25.10 - Atherosclerotic heart disease of [place] coronary artery without angina pectoris Is this a current diagnosis for this admission?: YesPlan: Patient is currently chest pain-free. He was previously symptomatic and has been transfused. Will continue to monitor on telemetry. Hold aspirin and Plavix. Continue metoprolol and lisinopril as tolerated (5) Obesity Qualifiers: Obesity type: due to excess calories Obesity severity: non-morbid Qualified Code(s): E66.09 - Other obesity due to excess calories Is this a current diagnosis for this admission?: Yes - Time Time Spent with patient: 25-34 minutes Medications reviewed and adjusted accordingly: Yes Anticipated discharge: Home Within: within 48 hours, within 36 hours
[2016-10-03] MEDS: AMLODIPINE BESYLATE 5 MG TABLET PO SCH (21:30)
[2016-10-03 21:36] LABS: HEMATOCRIT 30.9 % (37.9-51.0); HEMOGLOBIN 10.7 g/dL (13.5-17.0); HGB HCT DIFFERENCE 1.2; MEAN CORPUSCULAR HEMOGLOBIN 30.7 pg (27.0-33.4); MEAN CORPUSCULAR HGB CONC 34.5 g/dL (32.0-36.0); MEAN CORPUSCULAR VOLUME 89 fl (80-97); RED BLOOD COUNT 3.47 10^6/uL (4.35-5.55); RED CELL DISTRIBUTION WIDTH 14.1 % (11.5-14.0); WHITE BLOOD COUNT 7.5 10^3/uL (4.0-10.5)
[2016-10-04 04:37] LABS: HEMATOCRIT 29.7 % (37.9-51.0); HEMOGLOBIN 10.2 g/dL (13.5-17.0); HGB HCT DIFFERENCE 0.9; MEAN CORPUSCULAR HEMOGLOBIN 30.4 pg (27.0-33.4); MEAN CORPUSCULAR HGB CONC 34.4 g/dL (32.0-36.0); MEAN CORPUSCULAR VOLUME 89 fl (80-97); RED BLOOD COUNT 3.36 10^6/uL (4.35-5.55); RED CELL DISTRIBUTION WIDTH 14.1 % (11.5-14.0); WHITE BLOOD COUNT 7.1 10^3/uL (4.0-10.5)
[2016-10-04] MEDS: METOPROLOL TARTRATE 50 MG TABLET PO SCH ×2 (09:18→21:57)
[2016-10-04] MEDS: ACETAMINOPHEN 325 MG TABLET PO PRN ×2 (09:19→22:00)
[2016-10-04] MEDS: NORMAL SALINE 100 ML with PANTOPRAZOLE SODIUM 80 MG IV PRN ×2 (09:20)
[2016-10-04] MEDS ORDERED: FUROSEMIDE INJ/PF 20 MG/2 ML SDV IV ONE (11:57)
--- NOTE | 2016-10-04 18:23 | PDOC PROGRESS REPORT ---
Subjective Progress Note for:: 10/04/16 Subjective:: Patient denies chest pain, shortness of breath, abdominal pain, nausea, vomiting , fevers, chills, diarrhea, constipation, headache, new onset weakness. Patient has had no further stooling. He is tolerating a clear liquid diet. Physical Exam Vital Signs: Temp Pulse Resp BP Pulse Ox 98.6 F 65 18 145/73 H 95 10/04/16 07:50 10/04/16 07:50 10/04/16 07:50 10/04/16 07:50 10/04/16 07:50 Intake & Output 10/03/16 10/04/16 10/05/16 06:59 06:59 06:59 Intake Total 3766 2978 Output Total 200 3700 Balance 3566 -722 Weight 103.6 kg 101.2 kg Exam: General: Awake alert and oriented x3, no acute respiratory distress HEENT: AT/NC, PERRL, EOMI, oropharynx is moist, pink, no scleral icterus, no conjunctival injection, very poor dentition Neck: No JVD, trachea midline Chest: Bilateral bibasilar Rales CV: Regular rate and rhythm, normal S1 and S2, no murmur, rub, or gallop Abdomen: Soft, nontender to palpation, nondistended, active bowel sounds; no rebound, rigidity, or guarding Extremities: No cyanosis, clubbing; 1+ edema Neuro: Cranial nerves II through XII are grossly intact without focal deficits; awake alert and oriented x3 Psych: Normal mood and affect Results Laboratory Results: 10/04/16 03:59 10/03/16 10/03/16 10/03/16 12:44 18:15 21:05 WBC 6.5 8.1 7.5 RBC 3.49 L 3.62 L 3.47 L Hgb 10.6 L 10.9 L 10.7 L Hct 31.1 L 32.4 L 30.9 L MCV 89 90 89 MCH 30.3 30.0 30.7 MCHC 34.1 33.5 34.5 RDW 14.5 H 14.3 H 14.1 H Plt Count 160 156 160 Seg Neutrophils % 70.4 81.1 H Lymphocytes % 20.4 12.5 L Monocytes % 7.7 5.6 Eosinophils % 1.0 0.5 Basophils % 0.5 0.3 Absolute Neutrophils 4.6 6.6 Absolute Lymphocytes 1.3 1.0 Absolute Monocytes 0.5 0.5 Absolute Eosinophils 0.1 0.0 Absolute Basophils 0.0 0.0 10/04/16 03:59 WBC 7.1 RBC 3.36 L Hgb 10.2 L Hct 29.7 L MCV 89 MCH 30.4 MCHC 34.4 RDW 14.1 H Plt Count 155 Seg Neutrophils % Lymphocytes % Monocytes % Eosinophils % Basophils % Absolute Neutrophils Absolute Lymphocytes Absolute Monocytes Absolute Eosinophils Absolute Basophils 10/02/16 10/02/16 10/02/16 05:45 05:45 11:30 Creatine Kinase 51 L 34 L CK-MB (CK-2) 1.05 Troponin I 0.012 10/02/16 10/02/16 10/02/16 11:30 14:00 14:00 Creatine Kinase 49 L CK-MB (CK-2) 0.82 0.86 Troponin I < 0.012 < 0.012 10/02/16 10/02/16 18:03 18:03 Creatine Kinase 32 L CK-MB (CK-2) 0.56 Troponin I < 0.012 Impressions: Chest X-Ray 10/02/16 01:03 IMPRESSION: NO ACUTE RADIOGRAPHIC FINDING IN THE CHEST. Assessment & Plan - Diagnosis (1) Acute blood loss anemia Is this a current diagnosis for this admission?: YesPlan: Patient has been given a total of 4 unit packed red blood cells. Patient's hemoglobin has been stable. Will check a CBC in the morning. (2) GI hemorrhage Qualifiers: GI bleed type/associated pathology: diverticulosis Qualified Code(s) : K57.91 - Diverticulosis of intestine, part unspecified, without perforation or abscess with bleeding Is this a current diagnosis for this admission?: YesPlan: At this time, per endoscopy report it appears as though patient had a diverticular bleed. Patient has had no further bleeding. Will stop IV Protonix and advance patient's diet. If he has no further bleeding tomorrow, will likely discharge. (3) Tobacco abuse Is this a current diagnosis for this admission?: Yes (4) Coronary artery disease Qualifiers: Coronary Disease-Associated Artery/Lesion type: [place] artery [place] vs. transplanted heart: [place] heart Associated angina: without angina Qualified Code(s): I25.10 - Atherosclerotic heart disease of [place] coronary artery without angina pectoris Is this a current diagnosis for this admission?: YesPlan: Patient is currently chest pain-free. He was previously symptomatic and has been transfused. Will continue to monitor on telemetry. Hold aspirin and Plavix. Continue metoprolol and Norvasc as tolerated (5) Obesity Qualifiers: Obesity type: due to excess calories Obesity severity: non-morbid Qualified Code(s): E66.09 - Other obesity due to excess calories Is this a current diagnosis for this admission?: Yes - Time Time Spent with patient: 25-34 minutes Medications reviewed and adjusted accordingly: Yes Anticipated discharge: Home Within: within 24 hours
[2016-10-04] MEDS: AMLODIPINE BESYLATE 5 MG TABLET PO SCH (21:57)
[2016-10-05 04:56] LABS: ABSOLUTE EOSINOPHILS # (AUTO) 0.2 10^3/uL (0.0-0.6); ABSOLUTE LYMPHOCYTES (AUTO) 1.7 10^3/uL (0.5-4.7); ABSOLUTE MONOCYTES (AUTO) 0.6 10^3/uL (0.1-1.4); ABSOLUTE NEUT (AUTO) 4.1 10^3/uL (1.7-8.2); BASOPHILS % (AUTO) 0.6 % (0-2); EOSINOPHILS % (AUTO) 2.8 % (0-6); HEMATOCRIT 30.8 % (37.9-51.0); HEMOGLOBIN 10.6 g/dL (13.5-17.0); MEAN CORPUSCULAR HEMOGLOBIN 30.4 pg (27.0-33.4); MEAN CORPUSCULAR HGB CONC 34.4 g/dL (32.0-36.0); MEAN CORPUSCULAR VOLUME 88 fl (80-97); MONOCYTES % (AUTO) 9.6 % (3-13); RED BLOOD COUNT 3.49 10^6/uL (4.35-5.55); RED CELL DISTRIBUTION WIDTH 13.9 % (11.5-14.0); WHITE BLOOD COUNT 6.7 10^3/uL (4.0-10.5)
[2016-10-05 05:21] LABS: ANION GAP 7 (5-19); BLOOD UREA NITROGEN 13 mg/dL (7-20); CALCIUM 8.4 mg/dL (8.4-10.2); CARBON DIOXIDE 30 mmol/L (22-30); CHLORIDE 105 mmol/L (98-107); CREATININE RESULT 0.92 mg/dL (0.52-1.25); GLUCOSE 93 mg/dL (75-110); POTASSIUM 3.2 mmol/L (3.6-5.0); SODIUM 141.7 mmol/L (137-145)
[2016-10-05] MEDS ORDERED: LANSOPRAZOLE 15 MG TAB.RAP.DR PO SCH (06:00)
--- NOTE | 2016-10-05 06:14 | PDOC PROGRESS REPORT ---
Subjective Progress Note for:: 10/05/16 Subjective:: Late note for 10/04/2016 surrounding. Denies nausea or vomiting. Last bowel movement was more brown. No BM in last 20 hours. No abdominal pain. No lightheadedness or dizziness. No shortness of breath. Physical Exam Vital Signs: Temp Pulse Resp BP Pulse Ox 98.6 F 54 L 16 135/72 H 96 10/05/16 00:00 10/05/16 02:00 10/05/16 00:00 10/05/16 00:00 10/05/16 00:00 Intake & Output 10/03/16 10/04/16 10/05/16 06:59 06:59 06:59 Intake Total 3766 2978 607 Output Total 200 3700 1075 Balance 8222 -722 -582 Weight 103.6 kg 101.2 kg General appearance: PRESENT: no acute distress Eye exam: PRESENT: EOMI Respiratory exam: PRESENT: unlabored GI/Abdominal exam: PRESENT: soft. ABSENT: distended, tenderness Neurological exam: PRESENT: alert, oriented to situation Psychiatric exam: PRESENT: appropriate affect, normal mood Skin exam: ABSENT: jaundice, pallor Results Laboratory Results: 10/05/16 04:09 10/05/16 04:09 10/05/16 10/05/16 04:09 04:09 WBC 6.7 RBC 3.49 L Hgb 10.6 L Hct 30.8 L MCV 88 MCH 30.4 MCHC 34.4 RDW 13.9 Plt Count 184 Seg Neutrophils % 62.0 Lymphocytes % 25.0 Monocytes % 9.6 Eosinophils % 2.8 Basophils % 0.6 Absolute Neutrophils 4.1 Absolute Lymphocytes 1.7 Absolute Monocytes 0.6 Absolute Eosinophils 0.2 Absolute Basophils 0.0 Sodium 141.7 Potassium 3.2 L Chloride 105 Carbon Dioxide 30 Anion Gap 7 BUN 13 Creatinine 0.92 Est GFR ( Amer) > 60 Est GFR (Non-Af Amer) > 60 Glucose 93 Calcium 8.4 10/02/16 10/02/16 10/02/16 05:45 05:45 11:30 Creatine Kinase 51 L 34 L CK-MB (CK-2) 1.05 Troponin I 0.012 10/02/16 10/02/16 10/02/16 11:30 14:00 14:00 Creatine Kinase 49 L CK-MB (CK-2) 0.82 0.86 Troponin I < 0.012 < 0.012 10/02/16 10/02/16 18:03 18:03 Creatine Kinase 32 L CK-MB (CK-2) 0.56 Troponin I < 0.012 Impressions: Chest X-Ray 10/02/16 01:03 IMPRESSION: NO ACUTE RADIOGRAPHIC FINDING IN THE CHEST. Assessment & Plan - Diagnosis (1) Anemia Is this a current diagnosis for this admission?: Yes (2) Coronary artery disease Qualifiers: Coronary Disease-Associated Artery/Lesion type: [place] artery [place] vs. transplanted heart: [place] heart Associated angina: without angina Qualified Code(s): I25.10 - Atherosclerotic heart disease of [place] coronary artery without angina pectoris Is this a current diagnosis for this admission?: Yes (3) Lower GI bleed Is this a current diagnosis for this admission?: YesPlan: Hemoglobin stable. Presumably a diverticular bleed. Needs follow-up with [facility] for a more definitive colonoscopy and possible capsule endoscopy to rule out small intestine pathology. May also consider small bowel follow-through.
[2016-10-05] MEDS ORDERED: POTASSIUM CHLORIDE 10 MEQ TABLET.SA PO ONE (07:44)
[2016-10-05] MEDS: ACETAMINOPHEN 325 MG TABLET PO PRN (07:46)
[2016-10-05] MEDS: METOPROLOL TARTRATE 50 MG TABLET PO SCH (09:00)
[2016-10-05 09:52] VITALS: BP 136/71
--- NOTE | 2016-10-07 07:59 | PDOC DISCHARGE SUMMARY ---
General - Admit/Disc Date/PCP Admission Date/Primary Care Provider: 10/02/16 03:55 Discharge Date: 10/05/16 - Discharge Diagnosis (1) Acute blood loss anemia Is this a current diagnosis for this admission?: Yes (2) GI hemorrhage Is this a current diagnosis for this admission?: Yes (3) Tobacco abuse Is this a current diagnosis for this admission?: Yes (4) Coronary artery disease Is this a current diagnosis for this admission?: Yes (5) Obesity Is this a current diagnosis for this admission?: Yes - Additional Information Resuscitation Status: Full Code Discharge Diet: Cardiac Discharge Activity: Activity As Tolerated, Slowly Increase Activity Home Medications: Amlodipine Besylate [Norvasc 5 mg Tablet] 5 mg PO DAILY 10/02/16 Metoprolol Tartrate [Lopressor 50 mg Tablet] 50 mg PO Q12 10/02/16 Nitroglycerin [Nitrostat] 0.4 mg SL Q5MP PRN 10/02/16 Omeprazole 20 mg PO DAILY 10/02/16 Pravastatin Sodium [Pravachol] 40 mg PO DAILY 10/02/16 Lisinopril [Prinivil 40 mg Tablet] 40 mg PO DAILY #0 10/05/16 History of Present Illness History of Present Illness: JANNA MORRISON is a 65 year old male with a past medical history of coronary artery disease status post stent placement 2 in 2006, hypertension and tobacco dependence. Who had been in his usual state of health until approximately 1 hour prior to presentation having lower abdominal cramping followed by passage of hard stool with approximately 200ml of bright red blood. This occurred at least 4 times and brought to the emergency room for evaluation again occurring 3 times mixed with stool. Patient denies previous colonoscopy, any recent change in medications or prior event. He takes Plavix and full dose aspirin every morning. Hospital Course Hospital Course: Patient was initially placed in the ICU and was empirically given one unit of blood. Patient held this most of the day and was seen by surgery and started on proper for colonoscopy. Once prep was started, patient had resumption of bright red blood per rectum and required an additional 3 units of packed red blood cells. Patient underwent colonoscopy which was suggestive of diverticular bleed. Patient's aspirin and Plavix have been held this entire time and his bleeding did not recur after colonoscopy. Patient had several have an episode of chest pain which did not reveal any elevation of cardiac enzymes. His chest pain was felt to be due to anxiety and iatrogenic volume overload. Patient was diuresed and on day of discharge had no new complaints. Physical Exam Vital Signs: Temp Pulse Resp BP Pulse Ox 97.8 F 55 L 19 136/71 H 99 10/05/16 09:49 10/05/16 09:49 10/05/16 09:49 10/05/16 09:49 10/05/16 09:49 Exam: General: Awake alert and oriented x3, no acute respiratory distress HEENT: AT/NC, PERRL, EOMI, oropharynx is moist, pink, no scleral icterus, no conjunctival injection, very poor dentition Neck: No JVD, trachea midline Chest: Clear to auscultation bilaterally CV: Regular rate and rhythm, normal S1 and S2, no murmur, rub, or gallop Abdomen: Soft, nontender to palpation, nondistended, active bowel sounds; no rebound, rigidity, or guarding Extremities: No cyanosis, clubbing; trace edema Neuro: Cranial nerves II through XII are grossly intact without focal deficits; awake alert and oriented x3 Psych: Normal mood and affect Results Laboratory Results: 10/05/16 04:09 10/05/16 04:09 10/02/16 10/02/16 10/02/16 05:45 05:45 11:30 Creatine Kinase 51 L 34 L CK-MB (CK-2) 1.05 Troponin I 0.012 10/02/16 10/02/16 10/02/16 11:30 14:00 14:00 Creatine Kinase 49 L CK-MB (CK-2) 0.82 0.86 Troponin I < 0.012 < 0.012 10/02/16 10/02/16 18:03 18:03 Creatine Kinase 32 L CK-MB (CK-2) 0.56 Troponin I < 0.012 Impressions: Chest X-Ray 10/02/16 01:03 IMPRESSION: NO ACUTE RADIOGRAPHIC FINDING IN THE CHEST. Qualifiers PATEINT BEING DISCHARGED WITH ANY OF THE FOLLOWING DIAGNOSIS?: No Plan Time Spent: Less than 30 Minutes
== END 2016-10-05 11:34 | disposition home or self-care (01) | DRG 811 ==
LOC: ER 00:28 → EH 03:55 → 3N 15:18
PROVIDERS: ADMIT Internal Medicine; ATTEND Internal Medicine
PROC: 30233N1 Transfusion of Nonautologous Red Blood Cells into Peripheral Vein, Percutaneous Approach (ICD-10-PCS; principal; 2016-10-02)
PROC: 3E1H88Z Irrigation of Lower GI using Irrigating Substance, Via Natural or Artificial Opening Endoscopic (ICD-10-PCS; 2016-10-03)
PROC: 0DJ08ZZ Inspection of Upper Intestinal Tract, Via Natural or Artificial Opening Endoscopic (ICD-10-PCS; 2016-10-03 13:00)
DX: D62 Acute posthemorrhagic anemia (principal); K57.31 Diverticulosis of large intestine without perforation or abscess with bleeding; R07.9 Chest pain, unspecified; I10 Essential (primary) hypertension; E78.5 Hyperlipidemia, unspecified; I25.10 Atherosclerotic heart disease of native coronary artery without angina pectoris; F17.210 Nicotine dependence, cigarettes, uncomplicated; E66.9 Obesity, unspecified; Z95.5 Presence of coronary angioplasty implant and graft; Z79.82 Long term (current) use of aspirin; Z79.01 Long term (current) use of anticoagulants; Z68.30 Body mass index [BMI] 30.0-30.9, adult
CPT/HCPCS: 36415; 36430; 43235; 45378; 71010; 80048; 80053; 82272; 82550; 82553; 84484; 85025; 85027; 85610; 85730; 86850; 86900; 86901; 86920; 93005; 93010; 99291; J0171; J1610; J1940; J2250; J2310; J2405; J2550; J3010; J3490; J7030; J7050; P9016; S0164

== ENCOUNTER → 2018-12-03 | Outpatient (CLI) | payer MEDICARE, BC, OTHER ==
[2018-12-03 09:20] LABS: ALANINE AMINOTRANSFERASE 30 U/L (21-72); ALBUMIN 3.7 g/dL (3.5-5.0); ALKALINE PHOSPHATASE 64 U/L (38-126); ASPARTATE AMINO TRANSFERASE 22 U/L (17-59); BILIRUBIN,DIRECT 0.3 mg/dL (0.0-0.4); BILIRUBIN,TOTAL 0.4 mg/dL (0.2-1.3); CHOLESTEROL 151.96 mg/dL (0-200); TOTAL PROTEIN 6.6 g/dL (6.3-8.2); TRIGLYCERIDES 105 mg/dL (<150)
[2018-12-03 09:32] LABS: DIRECT LDL 83 mg/dL (<100)
== END ==
LOC: OD 08:12
PROVIDERS: ATTEND Specialist
DX: E78.49 Other hyperlipidemia (principal); I71.4 Abdominal aortic aneurysm, without rupture; I10 Essential (primary) hypertension; K92.2 Gastrointestinal hemorrhage, unspecified; K21.9 Gastro-esophageal reflux disease without esophagitis; R06.00 Dyspnea, unspecified; Z79.899 Other long term (current) drug therapy; F17.210 Nicotine dependence, cigarettes, uncomplicated; I25.2 Old myocardial infarction; Z98.61 Coronary angioplasty status
CPT/HCPCS: 36415; 80061; 80076

== ENCOUNTER → 2019-01-21 | Outpatient (CLI) | payer MEDICARE, BC, OTHER ==
[2019-01-21 14:23] LABS: ANION GAP 8 (5-19); BLOOD UREA NITROGEN 19 mg/dL (7-20); CALCIUM 9.4 mg/dL (8.4-10.2); CARBON DIOXIDE 31 mmol/L (22-30); CHLORIDE 104 mmol/L (98-107); GLUCOSE 97 mg/dL (75-110); POTASSIUM 4.3 mmol/L (3.6-5.0); SODIUM 142.9 mmol/L (137-145)
[2019-01-21 14:40] LABS: FREE T3 4.23 pg/mL (2.77-5.27); FREE T4 (FREE THYROXINE) 1.37 ng/dL (0.78-2.19)
[2019-01-21 14:54] LABS: THYROID STIMULATING HORMONE 1.29 uIU/mL (0.47-4.68)
== END ==
LOC: OD 12:56
PROVIDERS: ATTEND Specialist
DX: E78.49 Other hyperlipidemia (principal); I10 Essential (primary) hypertension; I25.2 Old myocardial infarction; K21.9 Gastro-esophageal reflux disease without esophagitis; K92.2 Gastrointestinal hemorrhage, unspecified; R06.00 Dyspnea, unspecified; I71.4 Abdominal aortic aneurysm, without rupture; Z98.61 Coronary angioplasty status; Z79.899 Other long term (current) drug therapy
CPT/HCPCS: 36415; 80048; 83036; 84439; 84443; 84481

== ENCOUNTER → 2019-02-10 | Outpatient (CLI) | payer MEDICARE, BC, OTHER ==
[~2019-02-10] MED LIST: ALBUTEROL SULFATE 0.083% NEB 2.5 MG/3 ML AMPUL NEB ONE
[2019-02-10 12:43] LABS: ARTERIAL BLOOD BASE EXCESS 5.2 mmol/L; ARTERIAL BLOOD H2CO3 1.52 mmol/L (1.05-1.35); ARTERIAL BLOOD O2 SATURATION 95.3 % (94-98); ARTERIAL BLOOD PCO2 50.4 mmHg (35-45); ARTERIAL BLOOD PH 7.41 (7.35-7.45); ARTERIAL BLOOD PO2 76.9 mmHg (80-100); ARTERIAL BLOOD TOTAL CO2 32.6 mmol/L (23-27)
[2019-02-10 12:44] LABS: ARTERIAL BLOOD FIO2 ROOM AIR
== END ==
LOC: RT 11:58
PROVIDERS: ATTEND Specialist
DX: J44.9 Chronic obstructive pulmonary disease, unspecified (principal); R06.00 Dyspnea, unspecified; E78.49 Other hyperlipidemia; I71.4 Abdominal aortic aneurysm, without rupture; K92.2 Gastrointestinal hemorrhage, unspecified; F17.210 Nicotine dependence, cigarettes, uncomplicated; I10 Essential (primary) hypertension; K21.9 Gastro-esophageal reflux disease without esophagitis; I25.2 Old myocardial infarction; Z98.61 Coronary angioplasty status; Z79.899 Other long term (current) drug therapy
CPT/HCPCS: 82803; 36600; 94729; 94727; 94060; A9270

== ENCOUNTER → 2019-10-21 | Outpatient (CLI) | payer MEDICARE, BC, OTHER ==
--- NOTE | 2019-10-21 13:48 | RADIOLOGY REPORT (SQ) ---
EXAM DESCRIPTION: CT CHEST WITHOUT COMPLETED DATE/TIME: 10/21/2019 1:03 pm REASON FOR STUDY: PULMONARY EMPHYSEMA (J43.9) J43.9 EMPHYSEMA, UNSPECIFIED COMPARISON: None. TECHNIQUE: CT scan performed of the chest without intravenous contrast. Images reviewed with lung, soft tissue and bone windows. Reconstructed coronal and sagittal MPR images reviewed. All images st ored on PACS. All CT scanners at this facility use dose modulation, iterative reconstruction, and/or weight based d osing when appropriate to reduce radiation dose to as low as reasonably achievable (ALARA). [facility]: Dose Right [facility]: CareDose [facility]: Dose Right [facility]: Teradose 4D [facility]: Smart [employer] RADIATION DOSE: CT Rad equipment meets quality standard of care and radiation dose reduction techniq ues were employed. CTDIvol: 18.2 mGy. DLP: 819 mGy-cm. mGy. LIMITATIONS: No technical limitations. FINDINGS: LUNGS AND PLEURA: Limited centrilobular and paraseptal emphysematous changes in the upper lobes, right more than left. Slightly irregular 8 mm nodule seen posteriorly in the right lung on im age 60 series 4. Small perifissural nodule on the right on image 64. HILAR AND MEDIASTINAL STRUCTURES: No identified masses or abnormal nodes. No obvious aneurysm. HEART AND VASCULAR STRUCTURES: No aneurysm. No pericardial effusion. UPPER ABDOMEN: 42 mm aneurysm of the infrarenal abdominal aorta. THYROID AND OTHER SOFT TISSUES: No masses. No adenopathy. BONES: No significant finding. HARDWARE: None in the chest. OTHER: No other significant findings. IMPRESSION: 1. Mild pulmonary emphysema. 2. Slightly irregular 8 mm nodule in the right lung. Follow-up as below. 3. 42 mm aneurysm of the infrarenal abdominal aorta. Follow-up as below. COMMENT: [place] CRITERIA FOR FOLLOW-UP OF PULMONARY NODULES Incidentally detected new nodules in persons 35 or older. HIGH RISK: History of smoking or other known risk factors. 6-8 mm single solid nodule: LOW RISK: CT 6-12 mo; then consider CT 18-24 mo. HIGH RISK: CT 6-12 mo; t hen CT 18-24 mo. AAA Size: Follow-up Recommendation 4.0-4.4 cm Every 12 months, vascular consultation recommended *Based upon the Society for Vascular Surgery Guidelines: J Vasc Surg. 2009 Oct;50(4 Suppl):S2-49 *For aortas of maximum diameter of 2.6-2.9 cm meeting the criteria for AAA (?1.5 x proximal normal se gment) TECHNICAL DOCUMENTATION: JOB ID: [id number] Quality ID # [id number]: Final reports with documentation of one or more dose reduction techniques (e.g., Au tomated exposure control, adjustment of the mA and/or kV according to patient size, use of iterative reconstruction technique) 2010 [employer]- All Rights Reserved Reading location - IP/workstation name: [email or web address]
== END ==
LOC: RAD 12:44
PROVIDERS: ATTEND Registered Nurse
DX: J43.9 Emphysema, unspecified (principal)
CPT/HCPCS: 71250

== ENCOUNTER → 2020-04-26 | Outpatient (CLI) | payer MEDICARE, BC, OTHER ==
--- NOTE | 2020-04-26 14:19 | RADIOLOGY REPORT (SQ) ---
EXAM DESCRIPTION: CT CHEST WITHOUT IMAGES COMPLETED DATE/TIME: 04/26/2020 1:59 pm REASON FOR STUDY: R91.1 SOLITARY PULMONARY NODULE R91.1 SOLITARY PULMONARY NODULE COMPARISON: 10/21/2019 TECHNIQUE: CT scan performed of the chest without intravenous contrast. Images reviewed with lung, soft tissue and bone windows. Reconstructed coronal and sagittal MPR images reviewed. All images st ored on PACS. All CT scanners at this facility use dose modulation, iterative reconstruction, and/or weight based d osing when appropriate to reduce radiation dose to as low as reasonably achievable (ALARA). [facility]: Dose Right [facility]: CareDose [facility]: Dose Right [facility]: Teradose 4D [facility]: [employer] RADIATION DOSE: CT Rad equipment meets quality standard of care and radiation dose reduction techniq ues were employed. CTDIvol: 17.5 mGy. DLP: 702 mGy-cm. mGy. LIMITATIONS: No technical limitations. FINDINGS: LUNGS AND PLEURA: 7.4 mm slightly irregular nodule is again noted no change in size or con figuration. This is in the superior segment of the right lower lobe. There is a 3.3 mm nodule along the right major fissure which is also unchanged. HILAR AND MEDIASTINAL STRUCTURES: No identified masses or abnormal nodes. No obvious aneurysm. HEART AND VASCULAR STRUCTURES: No aneurysm. No pericardial effusion. UPPER ABDOMEN: Incompletely evaluated. Only the proximal aorta is demonstrated and is slightly dilat ed measured at 3.5 cm. THYROID AND OTHER SOFT TISSUES: No masses. No adenopathy. BONES: No significant finding. HARDWARE: None in the chest. OTHER: No other significant findings. IMPRESSION: 1. Stable slightly irregular nodule in the superior segment of the right lower lobe molly ured at 7.[address] surveillance is recommended. Please see below for recommended follow-u p. Follow-up CT in 18 to 24 months is recommended. 2. Infrarenal abdominal aortic aneurysm. The aorta is incompletely visualize on today's study large st diameter is 3.5 cm. Review of the prior exam demonstrates a 4.2 cm infrarenal abdominal aortic an eurysm. Please see below for recommended follow-up. COMMENT: [place] CRITERIA FOR FOLLOW-UP OF PULMONARY NODULES Incidentally detected new nodules in persons 35 or older. HIGH RISK: History of smoking or other known risk factors. 6-8 mm single solid nodule: LOW RISK: CT 6-12 mo; then consider CT 18-24 mo. HIGH RISK: CT 6-12 mo; t hen CT 18-24 mo. AAA Size: Follow-up Recommendation 4.0-4.4 cm Every 12 months, vascular consultation recommended *Based upon the Society for Vascular Surgery Guidelines: J Vasc Surg. 2009 Oct;50(4 Suppl):S2-49 *For aortas of maximum diameter of 2.6-2.9 cm meeting the criteria for AAA (?1.5 x proximal normal se gment) TECHNICAL DOCUMENTATION: JOB ID: [id number] Quality ID # [id number]: Final reports with documentation of one or more dose reduction techniques (e.g., Au tomated exposure control, adjustment of the mA and/or kV according to patient size, use of iterative reconstruction technique) 2010 [employer]- All Rights Reserved Reading location - IP/workstation name: [email or web address]
== END ==
LOC: RAD 13:45
PROVIDERS: ATTEND Registered Nurse
DX: R91.1 Solitary pulmonary nodule (principal); I71.4 Abdominal aortic aneurysm, without rupture
CPT/HCPCS: 71250